=== PATIENT | male | born 1960 | race Hispanic/Latino ===

== ENCOUNTER 2020-07-30 21:11 | Inpatient (IN) | payer OTHER ==
[~2020-07-30] VITALS: Ht 170.2 cm; Wt 110.2 kg
[~2020-07-30 21:11] MED LIST: CINN1CAP PO; DOCU100C33 PO; FERS325 PO; GABA-531 PO; GEMF600T89 PO; GLIP10TA9 PO; LOSA50TA64 PO; METF-445 PO; METH-811 PO; MULT-950 PO; PANT40SU PO; SITA100T12 PO
[2020-07-30] MEDS ORDERED: MORPHINE 4 MG SYG ONE (21:42)
[2020-07-30] MEDS ORDERED: ONDANSETRON 4MG INJ ONE (21:42)
[2020-07-30 22:05] LABS: BASOPHILS % (AUTO) 0.3 % (0.0-5.0); EOSINOPHILS % (AUTO) 0.3 % (0.0-8.0); HEMATOCRIT 46.3 % (42-54); MEAN CORPUSCULAR HEMOGLOBIN 29.4 pg (27.0-33.0); MEAN CORPUSCULAR VOLUME 88.9 fL (79-99); MONOCYTES % (AUTO) 5.4 % (3.0-13.0); NEUTROPHILS % (AUTO) 85.6 % (40.0-77.0); PLATELET COUNT (AUTO) 264 K/uL (130-400); RED BLOOD CELL COUNT(AUTO) 5.21 MIL/uL (4.50-6.20); RED CELL DISTRIBUTION WIDTH 13.2 % (11.0-15.5); WHITE BLOOD COUNT (AUTO) 15.8 K/uL (4.8-10.8)
[2020-07-30 22:33] LABS: CARBON DIOXIDE 28 mmol/L (21-32); CHLORIDE 97 mmol/L (101-111); CREATININE 0.9 mg/dL (0.5-1.5); GLUCOSE,RANDOM 202 mg/dL (70-105); POTASSIUM 4.1 mmol/L (3.5-5.1); SODIUM SERUM 139 mmol/L (136-145); UREA NITROGEN, BLOOD 18 mg/dL (7-18)
[2020-07-30 22:38] LABS: ALANINE AMINOTRANSFERASE 32 U/L (12-78); ALBUMIN 4.8 g/dL (3.5-5.0); ASPARTATE AMINOTRANSFERASE 29 U/L (10-37); BILIRUBIN,TOTAL 0.6 mg/dL (0.2-1.0); LIPASE 68 U/L (114-286); TOTAL PROTEIN, SERUM 9.3 g/dL (6.0-8.3)
[2020-07-30] MEDS ORDERED: CEFOXITIN SODIUM 2 GM VIAL ONE (22:48)
[2020-07-30] MEDS ORDERED: 0.9%NACL 100ML 100 ML IV ONE (22:49)
[2020-07-30] MEDS ORDERED: LACTULOSE 20 GM/30 ML UDCUP PO PRN (23:30)
[2020-07-30] MEDS ORDERED: GLUCAGON 1MG KIT 1 MG ML IM PRN (23:30)
[2020-07-30] MEDS: 0.9%NACL 1000ML 1,000 ML IV SCH (23:30)
[2020-07-30] MEDS ORDERED: DEXTROSE 50%-WATER 50 ML DISP.SYRIN IV PRN (23:30)
[2020-07-30] MEDS ORDERED: ONDANSETRON 4MG INJ IV PRN (23:30)
[2020-07-30] MEDS ORDERED: ACETAMINOPHEN 325 MG TAB PO PRN ×2 (23:30)
[2020-07-31] VITALS (7 sets, daily range): BP systolic 128–165; BP diastolic 82–100
[2020-07-31] MEDS ORDERED: HYDROMORPHONE 0.5 MG SYG (0.5MG/0.5ML) ONE ×2 (00:02→05:03)
[2020-07-31] MEDS: MORPHINE 2 MG SYG IV PRN ×5 (03:48→23:00)
[2020-07-31] MEDS ORDERED: NONI PO (03:57)
[2020-07-31] MEDS ORDERED: INS7030 SQ (03:57)
[2020-07-31] MEDS ORDERED: NABU-141 PO (03:57)
[2020-07-31] MEDS ORDERED: ATOR20TA65 PO (03:57)
[2020-07-31] MEDS ORDERED: VITA-164 PO (03:57)
[2020-07-31] MEDS ORDERED: AMIT75TA2 PO (03:57)
[2020-07-31] MEDS ORDERED: PIOG30TA70 PO (03:57)
[2020-07-31] MEDS ORDERED: TERB250T89 PO (03:57)
[2020-07-31] MEDS ORDERED: HYDR-4068 PO (03:57)
[2020-07-31 04:54] LABS: BASOPHILS % (AUTO) 0.2 % (0.0-5.0); EOSINOPHILS % (AUTO) 2.3 % (0.0-8.0); HEMATOCRIT 45.3 % (42-54); LYMPHOCYTES % (AUTO) 5.3 % (21.0-51.0); MEAN CORPUSCULAR HEMOGLOBIN 28.7 pg (27.0-33.0); MEAN CORPUSCULAR HGB CONC 32.7 g/dL (32.0-36.0); MONOCYTES % (AUTO) 8.4 % (3.0-13.0); NEUTROPHILS % (AUTO) 83.4 % (40.0-77.0); PLATELET COUNT (AUTO) 338 K/uL (130-400); RED BLOOD CELL COUNT(AUTO) 5.15 MIL/uL (4.50-6.20); RED CELL DISTRIBUTION WIDTH 13.2 % (11.0-15.5); WHITE BLOOD COUNT (AUTO) 16.9 K/uL (4.8-10.8)
[2020-07-31] MEDS ORDERED: HYDROMORPHONE 0.5 MG SYG (0.5MG/0.5ML) IVP ONE (05:00)
[2020-07-31 05:09] LABS: CREATININE 0.8 mg/dL (0.5-1.5); POTASSIUM 3.8 mmol/L (3.5-5.1)
[2020-07-31] MEDS: INSULIN HUMULIN R 100 UNIT/ML 3ML SQ SCH ×4 (07:03→17:46)
[2020-07-31] MEDS: FAMOTIDINE 20MG VIAL IV SCH ×2 (07:44→19:39)
[2020-07-31] MEDS ORDERED: ZOSYN 3.375GM+NS 50ML 50 ML IV SCH (08:15)
[2020-07-31 08:36] LABS: HEMOGLOBIN A1C 7.2 % (4.0-6.0)
[2020-07-31] MEDS ORDERED: LABETALOL 20MG SYG IV PRN (09:15)
[2020-07-31] MEDS: 0.9%NACL 1000ML 1,000 ML IV SCH ×2 (09:30→19:39)
[2020-07-31 09:39] LABS: ABG BASE EXCESS 0.9 mmol/L (-2.0-3.0); ABG HCO3 26.2 mmol/L (21.0-28.0); ABG OXYGEN SATURATION 91.5 % (95.0-99.0); ABG PCO2 44 mmHg (35-48)
[2020-07-31] MEDS: ZOSYN 3.375GM+NS 50ML 50 ML IV SCH ×2 (14:54→20:59)
[2020-07-31] MEDS ORDERED: MORPHINE 2 MG SYG ONE (19:30)
[2020-07-31] MEDS: ENOXAPARIN SODIUM 40 MG/0.4 ML SYRINGE SQ SCH (19:39)
[2020-08-01] MEDS: INSULIN HUMULIN R 100 UNIT/ML 3ML SQ SCH ×5 (00:22→23:48)
[2020-08-01] MEDS: MORPHINE 2 MG SYG IV PRN ×4 (02:00→23:56)
[2020-08-01 04:16] VITALS: BP 139/82
[2020-08-01 04:29] LABS: HEMATOCRIT 43.6 % (42-54); MEAN CORPUSCULAR HEMOGLOBIN 29.3 pg (27.0-33.0); MEAN CORPUSCULAR HGB CONC 32.3 g/dL (32.0-36.0); MEAN CORPUSCULAR VOLUME 90.5 fL (79-99); RED BLOOD CELL COUNT(AUTO) 4.82 MIL/uL (4.50-6.20); RED CELL DISTRIBUTION WIDTH 13.4 % (11.0-15.5); WHITE BLOOD COUNT (AUTO) 7.5 K/uL (4.8-10.8)
[2020-08-01] MEDS: ZOSYN 3.375GM+NS 50ML 50 ML IV SCH ×3 (04:51→21:39)
[2020-08-01] MEDS: 0.9%NACL 1000ML 1,000 ML IV SCH ×3 (04:51→20:01)
[2020-08-01 04:56] LABS: ALBUMIN 3.9 g/dL (3.5-5.0); BILIRUBIN,TOTAL 0.8 mg/dL (0.2-1.0); MAGNESIUM 3.3 mg/dL (1.80-2.40); PHOSPHORUS 2.9 mg/dL (2.5-4.9); POTASSIUM 4.1 mmol/L (3.5-5.1); TOTAL PROTEIN, SERUM 7.9 g/dL (6.0-8.3)
[2020-08-01 08:02] VITALS: BP 135/76
[2020-08-01] MEDS: FAMOTIDINE 20MG VIAL IV SCH ×2 (08:26→20:01)
[2020-08-01] MEDS: ENOXAPARIN SODIUM 40 MG/0.4 ML SYRINGE SQ SCH (08:26)
[2020-08-01 11:51] VITALS: BP 152/77
[2020-08-01 16:56] VITALS: BP 139/79
[2020-08-01 20:05] VITALS: BP 140/86
[2020-08-01 23:41] VITALS: BP 143/87
[2020-08-02] MEDS: 0.9%NACL 1000ML 1,000 ML IV SCH ×4 (00:51→21:30)
[2020-08-02 04:00] LABS: BASOPHILS % (AUTO) 0.6 % (0.0-5.0); EOSINOPHILS % (AUTO) 2.3 % (0.0-8.0); HEMATOCRIT 38.4 % (42-54); LYMPHOCYTES % (AUTO) 26.6 % (21.0-51.0); MEAN CORPUSCULAR HEMOGLOBIN 29.4 pg (27.0-33.0); MEAN CORPUSCULAR HGB CONC 32.8 g/dL (32.0-36.0); MEAN CORPUSCULAR VOLUME 89.5 fL (79-99); MONOCYTES % (AUTO) 12.8 % (3.0-13.0); NEUTROPHILS % (AUTO) 57.1 % (40.0-77.0); PLATELET COUNT (AUTO) 235 K/uL (130-400); RED BLOOD CELL COUNT(AUTO) 4.29 MIL/uL (4.50-6.20); RED CELL DISTRIBUTION WIDTH 13.2 % (11.0-15.5); WHITE BLOOD COUNT (AUTO) 7.9 K/uL (4.8-10.8)
[2020-08-02 04:12] VITALS: BP 148/79
[2020-08-02 04:12] LABS: CREATININE 0.8 mg/dL (0.5-1.5); MAGNESIUM 2.3 mg/dL (1.80-2.40); POTASSIUM 3.4 mmol/L (3.5-5.1)
[2020-08-02] MEDS ORDERED: POTASSIUM CHLORIDE 20MEQ/100ML 100 ML IV PRN (05:00)
[2020-08-02] MEDS ORDERED: LIDOCAINE HCL-MPF 1% 2ML VIAL IV PRN (05:00)
[2020-08-02] MEDS ORDERED: POTASSIUM CHLORIDE 20MEQ/100ML 100 ML IV ONE (05:29)
[2020-08-02] MEDS ORDERED: LIDOCAINE HCL-MPF 1% 2ML VIAL ONE (05:29)
[2020-08-02] MEDS: ZOSYN 3.375GM+NS 50ML 50 ML IV SCH ×3 (05:36→21:44)
[2020-08-02] MEDS: INSULIN HUMULIN R 100 UNIT/ML 3ML SQ SCH ×4 (05:38→20:58)
[2020-08-02 08:00] VITALS: BP 147/86
[2020-08-02] MEDS: FAMOTIDINE 20MG VIAL IV SCH ×2 (08:27→20:33)
[2020-08-02] MEDS: ENOXAPARIN SODIUM 40 MG/0.4 ML SYRINGE SQ SCH (08:28)
[2020-08-02 12:43] VITALS: BP 169/70
[2020-08-02 17:10] VITALS: BP 135/113
[2020-08-02 20:00] VITALS: BP 164/85
[2020-08-03] VITALS: BP 154/79
[2020-08-03] MEDS: 0.9%NACL 1000ML 1,000 ML IV SCH (03:52)
[2020-08-03] MEDS: MORPHINE 2 MG SYG IV PRN (03:53)
[2020-08-03 04:00] VITALS: BP 154/78
[2020-08-03] MEDS: ZOSYN 3.375GM+NS 50ML 50 ML IV SCH (05:42)
[2020-08-03] MEDS: INSULIN HUMULIN R 100 UNIT/ML 3ML SQ SCH ×2 (06:00→12:46)
[2020-08-03 06:17] LABS: BASOPHILS % (AUTO) 0.7 % (0.0-5.0); EOSINOPHILS % (AUTO) 1.8 % (0.0-8.0); HEMATOCRIT 38.5 % (42-54); LYMPHOCYTES % (AUTO) 26.5 % (21.0-51.0); MEAN CORPUSCULAR HGB CONC 32.5 g/dL (32.0-36.0); MEAN CORPUSCULAR VOLUME 89.3 fL (79-99); MONOCYTES % (AUTO) 8.8 % (3.0-13.0); NEUTROPHILS % (AUTO) 60.6 % (40.0-77.0); PLATELET COUNT (AUTO) 254 K/uL (130-400); RED BLOOD CELL COUNT(AUTO) 4.31 MIL/uL (4.50-6.20); RED CELL DISTRIBUTION WIDTH 12.7 % (11.0-15.5); WHITE BLOOD COUNT (AUTO) 9.6 K/uL (4.8-10.8)
[2020-08-03 06:50] LABS: ALBUMIN 3.2 g/dL (3.5-5.0); BILIRUBIN,TOTAL 0.5 mg/dL (0.2-1.0); CREATININE 0.8 mg/dL (0.5-1.5); POTASSIUM 3.8 mmol/L (3.5-5.1); TOTAL PROTEIN, SERUM 6.8 g/dL (6.0-8.3)
[2020-08-03 08:06] VITALS: BP 171/90
[2020-08-03] MEDS: FAMOTIDINE 20MG VIAL IV SCH (09:45)
[2020-08-03] MEDS: ENOXAPARIN SODIUM 40 MG/0.4 ML SYRINGE SQ SCH (09:45)
[2020-08-03] MEDS ORDERED: LOSARTAN 50 MG TABLET ONE (10:50)
[2020-08-03] MEDS ORDERED: LOSARTAN 50 MG TABLET PO SCH (12:28)
== END 2020-08-03 15:15 | disposition home or self-care (01) | DRG 389 ==
LOC: EDH 21:11 → EDHIP 23:16 → 3AH 07-31 03:07 → 4BH 08-01 18:13
PROVIDERS: ADMIT Internal Medicine; ATTEND Internal Medicine
PROC: 0D9670Z Drainage of Stomach with Drainage Device, Via Natural or Artificial Opening (ICD-10-PCS; principal; 2020-07-30)
DX: K56.609 Unspecified intestinal obstruction, unspecified as to partial versus complete obstruction (principal); R65.10 Systemic inflammatory response syndrome (SIRS) of non-infectious origin without acute organ dysfunction; I10 Essential (primary) hypertension; E11.9 Type 2 diabetes mellitus without complications; E78.5 Hyperlipidemia, unspecified; Z82.0 Family history of epilepsy and other diseases of the nervous system; Z82.3 Family history of stroke; Z82.49 Family history of ischemic heart disease and other diseases of the circulatory system; Z82.5 Family history of asthma and other chronic lower respiratory diseases; Z83.3 Family history of diabetes mellitus; Z90.49 Acquired absence of other specified parts of digestive tract; Z79.899 Other long term (current) drug therapy
CPT/HCPCS: 36415; 36600; 71045; 74018; 74021; 74176; 80048; 80053; 82803; 82948; 83036; 83605; 83690; 83735; 84100; 84484; 85025; 85027; 93005; G0378; J0694; J1170; J1650; J1815; J2270; J2405; J2543; J3480; J3490; J7030